=== PATIENT | male | born 1970 | race Caucasian/White ===

== ENCOUNTER 2020-03-19 19:09 | Emergency (ER) | payer OTHER, SELFPAY ==
--- NOTE | ~2020-03-19 | CT_ITS ---
EXAMINATION: CT abdomen pelvis wo con EXAM DATE: 03/19/2020 19:56 INDICATION: Left flank pain. TECHNIQUE: Spiral CT of the abdomen and pelvis was performed without contrast. Axial, coronal and sag ittal images were reviewed. The dose-length product (DLP) for this examination was 306.46 mGy-cm. T he exposure was tailored according to patient size (auto mA exposure control), and iterative reconstr uction (ASIR) was used as additional dose reduction technique. There is no prior study for compariso n. FINDINGS: There is a distal left ureteral stone measuring 5 mm. There is a stone in the left renal pe lvis measuring 2.2 cm, does not appear to be obstructing. There is no hydroureter, but there is moder ate to severe hydronephrosis. There is moderate left perinephric fat stranding. No right nephrolithia sis. The prostate is unremarkable. The bladder is unremarkable. There are 2 peripherally calcified splenic hypodense lesions, largest measuring 6 cm. These are benig n. Liver, pancreas, adrenal glands are unremarkable. Gallbladder not identified, patient likely has h ad cholecystectomy. There is no retroperitoneal or pelvic lymphadenopathy. There is mild scattered arteriosclerotic disease. Small umbilical fat-containing hernia. The appendix is normal. The stomach and small bowel are unremarkable. There is expected amount of c olonic stool. No free intraperitoneal gas. The heart is normal in size. There are no pericardial or pleural effusions. The lung bases are unremarkable. Bilateral L5 spondylolysis with 2 mm jo listhesis L5 on S1. There are no osteoblastic or osteolytic lesions identified. IMPRESSION: 1. Distal left ureteral 5 mm stone, and left renal pelvic 2.2 cm stone. Moderate to severe hydroneph rosis, no hydroureter. 2. Peripherally calcified splenic lesions probably cystic and not clinically significant. 3. L5 spondylolysis. Reviewed, dictated and finalized at location A. OMER LEADER IMPRESSION: 1. Distal left ureteral 5 mm stone, and left renal pelvic 2.[address] Modera te to severe hydronephrosis, no hydroureter. 2. Peripherally calcified splenic lesions probably cystic and not clinically s ignificant. 3. L5 spondylolysis.
--- NOTE | ~2020-03-19 | XR_ITS ---
EXAMINATION: XR chest 1V EXAM DATE: 03/19/2020 20:02 INDICATION: Left upper quadrant pain. TECHNIQUE: Portable AP frontal chest x-ray was obtained. There is no prior study for comparison. FINDINGS: Minimal linear left basilar scarring. The lungs are otherwise clear. There are no pleural effusions. The cardiomediastinal silhouette is within normal limits. There is no pneumothorax suspe cted. Small to moderate-sized lower thoracic endplate osteophytes. IMPRESSION: No acute cardiopulmonary findings. Reviewed, dictated and finalized at location A. EASER OPERATOR
[2020-03-19 19:10] VITALS: BP 129/92; PULSE 96; RESP 20; TEMP 36.1; O2SAT 100
[2020-03-19 19:39] LABS: Basophils Percent Auto 0.3 % (0.2-1.2); Eosinophils Percent Auto 0.1 % (0-4.4); Hematocrit 46.1 % (42.0-52.0); Hemoglobin 15.9 g/dL (14.0-18.0); Immature Granulocyte Absolute 0.03 K/mm3 (0.00-0.031); Immature Granulocyte Percent A 0.3 % (0-0.5); Lymphocytes Absolute Auto 1.68 K/mm3 (0.9-3.2); Lymphocytes Percent Auto 14.2 % (18.3-44.2); Mean Corpuscular HGB Conc 34.5 g/dl (32-36); Mean Corpuscular Hemoglobin 28.3 pg (26-34); Mean Corpuscular Volume 82.2 fl (80-100); Mean Platelet Volume 10.9 fl (7.4-10.4); Monocytes Absolute Auto 0.7 K/mm3 (0.1-0.6); Neutrophils Absolute Auto 9.4 K/mm3 (1.3-6.7); Neutrophils Percent Auto 79.1 % (45.5-73.1); Platelet Count Result 214 k/mm3 (150-375); Red Blood Count 5.61 M/mm3 (4.6-6.20); Red Cell Distribution Width 11.9 % (11.5-14.5); White Blood Count 11.8 K/mm3 (4.5-10.0)
--- NOTE | 2020-03-19 19:47 | ED.ABDPAIN ---
HPI - Abdominal Pain General Chief Complaint: Abdominal Pain Stated Complaint: ABD PAIN Time Seen by Provider: 03/19/20 19:19 Source: patient Mode of arrival: ambulatory Limitations: no limitations History of Present Illness HPI narrative: 49 years old white male presents with left upper quadrant and left flank pain that started few hours prior to arrival associated with nausea and vomiting. Patient denies any relieving factors, get worse with deep breathing and certain movement. Patient denies any fever, chills, chest pain, shortness of breath, sore throat, exposure to anybody known having COVID-19. Related Data Allergies Allergy/AdvReac Type Severity Reaction Status Date / Time No Known Allergies Allergy Verified 03/19/20 19:33 Review of Systems Review of Systems: Narrative: CONSTITUTIONAL: Denies fever, chills, or sweats. EYES: Denies visual changes, redness, or discharge. ENT: Denies rhinorrhea, congestion, sore throat, or otalgia. CARDIOVASCULAR: Denies chest pain, palpitations, or edema. RESPIRATORY: Denies cough or dyspnea. GASTROINTESTINAL: Denies abdominal pain, nausea, vomiting, or diarrhea. GENITOURINARY: Denies dysuria or hematuria. SKIN: Denies rash or itching. MUSCULOSKELETAL: Denies back pain, joint pain, or myalgia. NEUROLOGIC: Denies headache, numbness, or weakness. PSYCHIATRIC: Denies anxiety or depression. PMFSH Past Medical History Medical History (Updated 03/19/20 @ 21:25 by Nikki Gibson MD) Cholecystectomy planned Kidney stone Social History Social History Gender identity (if verbalized by the patient): Male Exam Narrative: Exam Narrative: General appearance: Well-developed, well-nourished Skin: Normal color Chest and respiratory: Airway patent, no respiratory distress, no accessory muscle use Heart: Regular rate/rhythm Abdomen: Soft, severe tenderness left flank, no organomegaly, quiet bowel sounds Vascular: Normal peripheral pulses, normal capillary refill. Musculoskeletal: Normal range of motion, nontender back Neurologic: Alert and oriented ?3, PLY CUTTER is normal as tested, no gross motor deficit Course Course Emergency Course: Stable. Vital Signs Vital signs: Vital Signs Temperature 36.1 C L 03/19/20 19:10 Pulse Rate 96 03/19/20 19:10 Respiratory Rate 20 21 19:10 Blood Pressure 129/92 H 03/19/20 19:10 Pulse Oximetry 100 03/19/20 19:10 Temperature 36.1 C L 03/19/20 19:10 Pulse Rate 96 03/19/20 19:10 Respiratory Rate 20 03/19/20 19:10 Blood Pressure 129/92 H 03/19/20 19:10 Pulse Oximetry 100 03/19/20 19:10 MDM - Abdominal Pain MDM Narrative Medical decision making narrative: Kidney stone is my concern. Labs, CT abdomen pelvis without contrast ordered. Further plan to follow Differential Diagnosis Differential diagnosis: Likely calculus of kidney, constipation and diverticulitis Lab Data Result diagrams: 03/19/20 19:32 03/19/20 19:31 Labs: Lab Results 03/19/20 03/19/20 Range/Units 19:31 19:32 WBC 11.8 H (4.5-10.0) K/mm3 RBC 5.61 (4.6-6.20) M/mm3 Hgb 15.9 (14.0-18.0) g/dL Hct 46.1 (42.0-52.0) % MCV 82.2 (80-100) fl MCH 28.3 (26-34) pg MCHC 34.5 (32-36) g/dl RDW 11.9 (11.5-14.5) % Plt Count 214 (150-375) k/mm3 MPV 10.9 H (7.4-10.4) fl Immature Gran % (Auto) 0.3 (0-0.5) % Neut % (Auto) 79.1 H (45.5-73.1) % Lymph % (Auto) 14.2 L (18.3-44.2) % [place] % (Auto) 6.0 (2.6-8.5) % Eos % (Auto) 0.1 (0-4.4) % Baso % (Auto) 0.3 (0.2-1.2) % Lymph # (Auto) 1.68 (0.9-3.2) K/mm3 [place] # (Auto) 0.7 H (0.1-0.6) K/mm
[2020-03-19] MEDS: ONDANSETRON INJ 4 MG/2 ML VIAL IV PUSH (19:48)
[2020-03-19] MEDS: SODIUM CHLORIDE 0.9% IV 1,000 ML 999 ML IV CONT (19:48)
[2020-03-19] MEDS: MORPHINE SULFATE (*CRX) 4 MG/ML INJ IV PUSH (19:48)
[2020-03-19 19:50] LABS: Alanine Aminotransferase 28 U/L (4-50); Albumin Level 4.4 g/dL (3.5-5.1); Alkaline Phosphatase 58 U/L (38-126); Anion Gap 9 mmol/L (8-16); Aspartate Amino Transferase 30 U/L (17-59); Bilirubin,Total 1.3 mg/dL (0.2-1.3); Blood Urea Nitrogen 18 mg/dL (9-20); Calcium 9.7 mg/dL (8.4-10.2); Carbon Dioxide 30 mmol/L (22-30); Chloride 98 mmol/L (98-107); Estimated CRCL calculation 74 ml/min; Estimated Glomerular Filt Rate > 60; Glucose 158 mg/dL (75-110); Lipase 90 U/L (23-300); Potassium 4.2 mmol/L (3.4-5.0); Sodium 137 mmol/L (137-145)
[2020-03-19 19:59] LABS: Add Urine Microscopic? YES; Appearance Urine Clear (Clear); Bilirubin Urine Negative (Negative); Blood Urine 2+ (Negative); Color Urine Straw (Yellow); Glucose Urine UA Negative (Negative); Ketones Urine Negative (Negative); Leukocyte Esterase Ur Negative LEU/UL (Negative); Mucus Urine Rare /lpf; Nitrate Urine Negative (Negative); Protein Urine Negative (Negative); Specific Grav Ur 1.009 (1.001-1.035); Urobilinogen Urine Negative mg/dL (<2.0); WBC Urine 0-3 /hpf
[2020-03-19] MEDS: KETOROLAC 30 MG/ML VIAL (*BKC) IV PUSH (20:46)
[2020-03-19 20:52] VITALS: BP 132/99; PULSE 75; RESP 18; O2SAT 100
[2020-03-19] MEDS: TAMSULOSIN HCL 0.4 MG CAPSULE PO (21:05)
[2020-03-19 21:35] VITALS: BP 120/85; PULSE 80; RESP 17; O2SAT 98
== END 2020-03-19 21:37 | disposition home or self-care (01) ==
PROVIDERS: Emergency Provider Emergency Medicine
DX: N13.2 Hydronephrosis with renal and ureteral calculous obstruction (principal); Z87.442 Personal history of urinary calculi; M43.06 Spondylolysis, lumbar region
CPT/HCPCS: 36415; 71045; 74176; 80053; 81001; 83690; 85025; 96361; 96374; 96375; 99284; A9270; J1885; J2270; J2405; J7030

== ENCOUNTER 2021-04-20 21:07 | Emergency (ER) | payer OTHER, SELFPAY ==
[2021-04-20 21:09] VITALS: BP 134/75; PULSE 85; RESP 18; TEMP 36.3; O2SAT 99
--- NOTE | 2021-04-20 21:16 | PC.NURSE ---
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
--- NOTE | 2021-04-20 21:31 | ED.EYEPROB ---
HPI - Eye Problem General Chief complaint: Eye Problems Stated complaint: L eye problem Time Seen by Provider: 04/20/21 21:13 Source: patient Mode of arrival: ambulatory Limitations: no limitations History of Present Illness HPI Narrative: Pt is a 50 y/o male, without significant PMHx, presents to ED via POV with left eye discomfort after feeling debris from the ceiling enter his eye around 1300 today. He attempted to irrigate the eye with eye wash solution and notes he felt his eye was briefly soothed however, since that time, he has experienced increased irritation of the left eye and upper eye lid, prompting his visit. He wears corrective lenses but does not wear contacts. He denies vision changes, photophobia or discharge/bleeding from the eye. He is uncertain when his last tetanus was received. He has no other complaints and denies modifying factors. MD chief complaint: eye injury (refer to HPI) Location: left eye Eye Symptoms: foreign body sensation Place: home Mechanism: other (refer to HPI) Associated symptoms: none Treatments Prior to Arrival: irrigated eye Related Data Allergies Allergy/AdvReac Type Severity Reaction Status Date / Time No Known Allergies Allergy Verified 03/19/20 19:33 Review of Systems Review of Systems: refer to HPI Eyes: Eyes: Reports as per HPI [facility] Past Medical History Medical History Cholecystectomy planned Kidney stone Social History Social History Gender identity (if verbalized by the patient): Male Exam Const: General: no acute distress and alert Orientation/consciousness: patient oriented x3 HENMT: Head: normal to inspection Eyes: Conjunctivae: conjunctivae normal and conjunctival abnormality left Pupils: Equal, round and reactive pupils present EOM: EOMs intact bilaterally Direct Ophthalmoscopy: no photophobia Other: fluorescein uptake noted in the conjunctiva at 3 o'clock No FB noted left upper eye lid is mildly swollen, no erythema noted, no hordeolum or chalazion Lid is everted-no FB noted, no corneal abrasion or update noted otherwise Neck: Neck: normal visual inspection Resp: Effort & Inspection: normal respiratory effort Auscultation: clear to auscultation bilaterally Cardio: Rate: regular rate Rhythm: regular rhythm Skin: General skin exam: normal color Rashes: no rashes Neuro: General: patient oriented x3 and moves all extremities Extrem: General: normal to inspection Psych: Appearance: grossly normal Mental Status: mental status grossly normal Affect: normal affect Attitude: cooperative Course Course Emergency Course: fluorescein stain completed, refer to exam. Update in the conjunctiva only, no FB or corneal abrasion noted, plan to discharge home with optometry FU tomorrow if symptoms are not improving. Pt is agreeable with plan. Vital Signs Vital signs: Vital Signs Temperature 36.3 C L 04/20/21 21:09 Pulse Rate 85 04/20/21 21:09 Respiratory Rate 18 04/20/21 21:09 Blood Pressure 134/75 04/20/21 21:09 Pulse Oximetry 99 04/20/21 21:09 Temperature 36.3 C L 04/20/21 21:09 Pulse Rate 85 04/20/21 21:09 Respiratory Rate 18 04/20/21 21:09 Blood Pressure 134/75 04/20/21 21:09 Pulse Oximetry 99 04/20/21 21:09 MDM - Eye Problem MDM Narrative Medical decision making narrative: corneal abrasion, corneal FB, conjunctival abrasion Differential Diagnosis Differential diagnosis: Likely corneal abrasion and conjunctivitis Discharge Plan Discharge Clinical Impression: Abrasion of conjunctiva, left Qualifiers: Encounter type: initial encounter Qualified Code(s): S05.02XA - Injury of conjunctiva and corneal abrasion without foreign body, left eye, initial encounter Patient Disposition: Home, Self-Care Condition: Improved Instructions: Antibiotic Form Additional Instructions: START AND COMPLETE
[2021-04-20] MEDS: FLUORESCEIN SOD 1 MG/STRIP (21:39)
[2021-04-20] MEDS: DACRIOSE EYE IRRIGATION 118 ML BOTTLE (21:40)
[2021-04-20] MEDS: TETRACAINE HCL 0.5% OPHTH SOLN 4 ML BTL 1 DROP (21:40)
== END 2021-04-20 21:52 | disposition home or self-care (01) ==
PROVIDERS: Emergency Provider Nurse Practitioner Family
DX: S05.02XA Injury of conjunctiva and corneal abrasion without foreign body, left eye, initial encounter (principal); Z87.442 Personal history of urinary calculi; W20.8XXA Other cause of strike by thrown, projected or falling object, initial encounter
CPT/HCPCS: 90471; 99283; A9270